=== PATIENT | male | born 1965 | race Caucasian/White ===

== ENCOUNTER 2021-12-30 10:07 | Emergency (ER) | payer MEDICARE, SELFPAY ==
[2021-12-30 10:18] VITALS: BP 180/111; PULSE 89; RESP 16; TEMP 37.1; O2SAT 98
[2021-12-30 10:43] VITALS: BP 180/111; PULSE 89; RESP 16; TEMP 37.1; O2SAT 98
--- NOTE | 2021-12-30 10:58 | ED.GENADULT ---
HPI - General Adult General Chief complaint: Unspecified Stated complaint: hbp Time Seen by Provider: 12/30/21 10:30 Source: patient Mode of arrival: ambulatory Limitations: no limitations History of Present Illness HPI narrative: Patient presents today complaining of high blood pressure. He was seen in his home by a nurse from his insurance company yesterday. When she took his blood pressure it was 189/120. She also noted that he had significant swelling in his bilateral feet and lower legs. Patient states he never looks at his feet, so has never noticed swelling before. She instructed him at that time to go to the ER to be evaluated immediately. Patient states he had too much to do at home yesterday, but felt guilty this morning so he came into [facility] for evaluation today. This morning prior to arrival, he checked his BP at home and it was 181/123. Upon arrival, patient's blood pressure was 180/111. When questioned, patient does endorse a slight headache which she rates a 2/10. He denies any additional symptoms to include chest pain, shortness of breath, dizziness, numbness or tingling in the extremities, vision changes. Related Data Home Medications Medication Instructions Recorded Confirmed alprazolam 1 mg tablet mg 12/30/21 dicyclomine 20 mg tablet mg 12/30/21 methylphenidate HCl 20 mg tablet mg 12/30/21 omeprazole 40 mg capsule,delayed mg 12/30/21 release prochlorperazine maleate 10 mg mg 12/30/21 tablet Allergies Allergy/AdvReac Type Severity Reaction Status Date / Time No Known Allergies Allergy Verified 10/26/17 13:27 Review of Systems Review of Systems: CONSTITUTIONAL: Denies body aches, fever, chills, or sweats. EYES: Denies visual changes, redness, or discharge. ENT: Denies rhinorrhea, congestion, sore throat, or otalgia. CARDIOVASCULAR: Denies chest pain, palpitations, or edema. RESPIRATORY: Denies cough or dyspnea. GASTROINTESTINAL: Denies abdominal pain, nausea, vomiting, or diarrhea. GENITOURINARY: Denies dysuria or hematuria. SKIN: Denies rash, itching, or wounds. MUSCULOSKELETAL: Denies back pain, joint pain, or myalgia. NEUROLOGIC: Denies numbness, tingling, or weakness.+ Headache PSYCH: Denies depression or anxiety. PMFSH Past Medical History Medical History (Updated 12/30/21 @ 11:01 by Cookie Covington, DITCH [employer]PECTOR, ) Anxiety Comments At time of signature, I have reviewed and agree with nursing past medical, surgical, social and family history unless otherwise noted. Please see nursing chart for further information. There is no relevant family history pertinent to the presenting complaint Exam Narrative: GENERAL: Well-appearing, well-nourished, and in no acute distress. HEAD: Normocephalic, atraumatic. EYES: EOMI. PERRL. No redness or drainage. Conjunctivae normal. Gross dental decay. ENT: Mucous membranes pink and moist. NECK: Normal AROM. Supple. No lymphadenopathy. CHEST: No respiratory distress. Clear to auscultation. HEART: Regular rate and rhythm. No murmur appreciated. Normal peripheral pulses. EXTREMITIES: Normal range of motion. No edema noted in the lower legs or feet. SKIN: Warm, dry, no rash. Capillary refill normal. Normal skin turgor. NEURO: No focal deficits. Alert and oriented x3. Gait steady. PSYCH: Very anxious Course Course Level of Care: Express Care Visit Vital Signs Vital signs: Vital Signs Temperature 98.7 F 12/30/21 10:18 Pulse Rate 89 12/30/21 10:18 Respiratory Rate 16 12/30/21 10:18 Blood Pressure 180/111 H 12/30/21 10:18 Pulse Oximetry 98 12/30/21 10:18 Oxygen Delivery Room Air 12/30/21 10:18 Temperature 98.7 F 12/30/21 10:43 Pulse Rate 89 12/30/21 10:43 Respiratory Rate 16 12/30/21 10:43 Blood Pressure 180/111 H 12/30/21 10:43 Pulse Oximetry 98 12/30/21 10:43 Oxygen Delivery Room Air 12/30/21 10:43 Reviewed. Pt has been instructed to follow up with his PCP regarding his elevat
== END 2021-12-30 10:58 | disposition left against medical advice (07) ==
PROVIDERS: Emergency Provider Nurse Practitioner
DX: R03.0 Elevated blood-pressure reading, without diagnosis of hypertension (principal); R51.9 Headache, unspecified; F41.9 Anxiety disorder, unspecified
CPT/HCPCS: 99212; G0463

== ENCOUNTER 2023-08-24 09:41 | Emergency (ER) | payer MEDICARE, SELFPAY ==
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
[2023-08-24 09:56] VITALS: BP 149/84; PULSE 77; RESP 16; TEMP 37; O2SAT 98
[2023-08-24] MEDS: SILVER SULFADIAZINE 1% CR 50 GM JAR (*BKC) 1 APPLIC TOPICAL (10:33)
[2023-08-24] MEDS: TETANUS,DIPHTHERIA,AC PERTUSSIS ADULT (0.5 ML) BOOSTRIX IM (10:33)
== END 2023-08-24 10:44 | disposition home or self-care (01) ==
PROVIDERS: Emergency Provider Nurse Practitioner Family; PCP Family Medicine
DX: T25.231A Burn of second degree of right toe(s) (nail), initial encounter (principal); T25.221A Burn of second degree of right foot, initial encounter; X01.0XXA Exposure to flames in uncontrolled fire, not in building or structure, initial encounter; Z23 Encounter for immunization; F41.9 Anxiety disorder, unspecified
CPT/HCPCS: 16020; 90471; 90715; 99213; A9270; G0463

== ENCOUNTER 2025-05-20 11:43 | Emergency (ER) | payer MEDICARE, SELFPAY ==
--- NOTE | ~2025-05-20 | XR_ITS ---
EXAMINATION: [id number] DATE: 05/20/2025 12:30 INDICATION: Left rib injury post fall TECHNIQUE: A frontal inspiratory view of the chest and 3 views of the left ribs were obtained. COMPARISON: None FINDINGS: Old healed posterolateral left second-fifth rib fracture deformities. Additional old healed fracture deformity at the anterior right sixth rib. No acute rib fractures identified. Lungs are clear with no focal airspace opacities, pulmonary edema, pleural effusion or pneumothorax. Cardiomediastinal silhouette is normal. Cholecystectomy clips in right upper quadrant. IMPRESSION: 1. Old bilateral rib fractures. No acute rib fractures or acute cardiopulmonary disease. Reviewed, dictated and finalized at location A. COM COORDINATOR
[2025-05-20 11:54] VITALS: BP 138/108; PULSE 83; RESP 20; TEMP 36.3; O2SAT 96
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
== END 2025-05-20 13:16 | disposition home or self-care (01) ==
PROVIDERS: Emergency Provider Registered Nurse; PCP Family Medicine
DX: S29.8XXA Other specified injuries of thorax, initial encounter (principal); W19.XXXA Unspecified fall, initial encounter; I10 Essential (primary) hypertension; E78.5 Hyperlipidemia, unspecified; K21.9 Gastro-esophageal reflux disease without esophagitis; F41.9 Anxiety disorder, unspecified; F98.8 Other specified behavioral and emotional disorders with onset usually occurring in childhood and adolescence
CPT/HCPCS: 71101; 99213; G0463